=== PATIENT | male | born 1985 | race Caucasian/White ===

== ENCOUNTER → 2017-05-05 | Outpatient (CLI) | payer OTHER ==
[~2017-05-05] MED LIST: AMITRIPTYLINE H10 MG; ANTIVERT25 MG PO; Adderall XR; BUSPIRONE HCL15 MG; CLONIDINE HCL0.1 MG PO; LIBRIUM25 MG PO; METH54T; PROMETHAZINE HC25 M1; TRAMADOL HCL50 MG; TRAZODONE HCL50 MG PO; VENLAFAXINE HC150 M1; VENLAFAXINE HCL75 M3
== END | disposition home or self-care (01) ==
LOC: NUC 11:00
DX: N13.0 Hydronephrosis with ureteropelvic junction obstruction (principal); Q63.1 Lobulated, fused and horseshoe kidney; R94.4 Abnormal results of kidney function studies; R93.429 Abnormal radiologic findings on diagnostic imaging of unspecified kidney
CPT/HCPCS: 78709; A9562

== ENCOUNTER 2017-07-19 05:52 | Day surgery (SDC) | payer OTHER ==
[~2017-07-19] VITALS: Ht 172.7 cm; Wt 103.9 kg
[~2017-07-19 05:52] MED LIST changes: +ADDERALL XR 2020 MG PO; +ADDERALL20 MG PO; +FLOMAX0.4 MG PO; +IMITREX100 MG PO; +INDERAL40 MG PO; +KLONOPIN1 MG PO; +RANITIDINE HCL300 M1 PO; +TROKENDI XR100 MG PO; +ULTRAM50 MG PO; +VIIBRYD40 MG PO; +XYZAL5 MG PO; +ZYRTEC10 M3 PO
[2017-07-19 07:00] VITALS: BP 131/83
[2017-07-19 10:03] VITALS: BP 113/80
[2017-07-19 10:49] VITALS: BP 109/68
== END 2017-07-19 10:50 | disposition home or self-care (01) ==
LOC: SDC 05:52
PROVIDERS: Urology
DX: N20.0 Calculus of kidney (principal); I10 Essential (primary) hypertension; K21.9 Gastro-esophageal reflux disease without esophagitis; F41.9 Anxiety disorder, unspecified; Q63.1 Lobulated, fused and horseshoe kidney
CPT/HCPCS: 74000; 76000; 82365 90; J0690; J1100; J1170; J1580; J1885; J2250; J3010